=== PATIENT | female | born 1935 | race Caucasian/White ===

== ENCOUNTER 2016-08-04 16:53 | Emergency (ER) | payer MEDICARE ==
[2016-08-04 17:49] LABS: Hematocrit 38 % (35-47); Hemoglobin 12.7 g/dl (12.0-16.0); Mean Corpuscular HGB Conc 33 g/dl (31-36); Mean Corpuscular Hemoglobin 30 pg (27-31); Mean Corpuscular Volume 91 fL (80-97); Mean Platelet Volume 10 um3 (7.4-10.4); Red Blood Count 4.21 10^6/ul (4.0-5.4); Red Cell Distribution Width 13 % (10.5-15); White Blood Count 8.9 10^3/ul (3.5-10.8)
[2016-08-04 18:04] LABS: Albumin 4.1 g/dL (3.2-5.2); BUN/Creatinine Ratio 31.8 (8-20); Calcium 9.8 mg/dL (8.6-10.3); EGFR African American 79.1 (>60); EGFR Non-African American 61.5 (>60); Globulin 3.3 g/dL (2-4); Potassium 3.7 mmol/L (3.5-5.0); Total Protein 7.4 g/dL (6.4-8.9)
--- NOTE | 2016-08-04 18:18 | RAD ---
Indication: Fall, head injury. Patient on anticoagulants. CT of the brain was performed without IV contrast. Ventricular structures are midline. No midline shift is noted. The extra-axial spaces are unremarkable. There is central and cortical atrophy noted. There is no evidence of intracranial mass or hemorrhage. No other high or low density lesions are identified. Periventricular lucency consistent with chronic ischemic White matter change is noted. When compared to previous exam of October 23, 2012 there is no significant change is noted. IMPRESSION: Atrophy. Chronic ischemic White matter change is noted. No intracranial mass or hemorrhage is noted.
[2016-08-04 18:27] LABS: Total Bilirubin 0.3 mg/dL (0.2-1.0)
--- NOTE | 2016-08-04 19:06 | ED ---
Adult Trauma - HPI Summary HPI Summary: The patient is a 80 female presenting to ED with reported mechanical fall with head injury today. Reports bending forward to place boots on, loosing balance, and falling forward onto bilateral knees and left side of head. Denies LOC, headache, neck or back pain, chest pain, palpitations, lightheadedness, syncope , shortness of breath, hemoptysis, abdominal pain, nausea, vomiting, diarrhea, dysuria, change in voiding, hematuria, paresthesias. 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 PCP Dr. Finney. SH: Denies smoking or alcohol. Lives independently with . - History of Current Complaint Chief Complaint: EDHeadInjury Stated Complaint: FALL / HIT HEAD Time Seen by Provider: 08/04/16 18:03 Pain Intensity: 0 - Allergy/Home Medications Allergies/Adverse Reactions: Allergies Allergy/AdvReac Type Severity Reaction Status Date / Time No Known Allergies Allergy Verified 08/04/16 17:42 Home Medications: Home Medications Aspirin EC Low Dose* [Ecotrin EC Low Dose 81 MG*] 81 mg PO DAILY 08/04/16 [ History Confirmed 08/04/16] Bisoprolol & Hydrochlorothiazi [Ziac 10-6.25 mg-] 1 tab PO DAILY 08/04/16 [ History Confirmed 08/04/16] Hidrmoslomt-Nmzyiihhaii-Kyh C- [Glucosamine Chondroitin] 1 cap PO DAILY [History Confirmed 08/04/16] Hydrochlorothiazide TAB* [Hydrodiuril TAB*] 12.5 mg PO DAILY 08/04/16 [History Confirmed 08/04/16] Levothyroxine TAB* [Synthroid TAB*] 125 mcg PO DAILY 08/04/16 [History Confirmed 08/04/16] Misc Natural Products [Fiber Felt] 1 teasp PO DAILY 08/04/16 [History Confirmed 08/04/16] Multiple Vitamins W/ Minerals [Eye Vitamins & Minerals] 1 tab PO DAILY 08/04/16 [History Confirmed 08/04/16] Multiple Vitamins W/ Minerals [Multivitamin Adults 50+] 1 tab PO DAILY 08/04/16 [History Confirmed 08/04/16] Oxybutynin TAB* [Ditropan TAB*] 10 mg PO DAILY 08/04/16 [History Confirmed 08/04] Rivaroxaban TAB(*) [Xarelto 20 mg] 20 mg PO DAILY 08/04/16 [History Confirmed ] metFORMIN* [Glucophage 500 MG TAB *] 500 mg PO BID 08/04/16 [History Confirmed 08/04/16] PMH/Surg Hx/FS Hx/Imm Hx Endocrine/Hematology History: Reports: Hx Anticoagulant Therapy - coumadin, Hx Thyroid Disease Cardiovascular History: Reports: Hx Hypertension - W/MEDS Denies: Hx Pacemaker/ICD Sensory History: Reports: Hx Cataracts - bilateral eye surgery, Hx Contacts or Glasses, Hx Vision Problem - loss of left eye vision this admission, Hx Hearing Aid - REMOVED, Hx Hearing Problem Opthamlomology History: Reports: Hx Cataracts - bilateral eye surgery, Hx Contacts or Glasses, Hx Vision Problem - loss of left eye vision this admission Psychiatric History: Reports: Other Psychiatric Issues/Disorders - claustrophobia Denies: Hx Panic Disorder - Surgical History Surgery Procedure, Year, and Place: HYSTERECTOMY Hx Anesthesia Reactions: No Infectious Disease History: No Infectious Disease History: Denies: Traveled Outside the [place] in Last 30 Days - Social History Alcohol Use: Rare Substance Use Type: Reports: None Smoking Status (MU): Never Smoked Tobacco Review of Systems Constitutional: Negative Negative: Fever, Chills, Fatigue Eyes: Negative Negative: Photophobia, Blurred Vision ENT: Negative Negative: Epistaxis Cardiovascular: Negative Negative: Palpitations, Chest Pain Respiratory: Negative Negative: Shortness Of Breath Gastrointestinal: Negative Negative: Abdominal Pain, Vomiting, Diarrhea, Nausea Genitourinary: Negative Positive: no symptoms reported. Negative: burning, dysuria, frequency, hematuria, pain, urgency Positive: Arthralgia. Negative: Myalgia, Decreased ROM, Edema Skin: Negative Positive: Weakness. Negative: Headache, Paresthesia, Numbness, Syncope, Slurred Speech Psychological: Normal All Other Systems Reviewed And Are Negative: Yes Physical Exam Triage Information Reviewed: Yes Vital Signs On Initial Exam: Initial Vitals Temp Pulse Resp BP Pulse Ox 98.4 F 78 20 159/84 98 08/04/16 16:55 08/04/16 16:55 08/04/16 16:55 08/04/16 16:55 08/04/16 16:55 Vital Signs Reviewed: Yes Appearance: Positive: Well-Appearing, No Pain Distress, Well-Nourished Skin: Positive: Warm, Skin Color Reflects Adequate Perfusion, Dry, Other - minor abrasion left knee Head/Face: Positive: Normal Head/Face Inspection. Negative: Cephalohematoma Eyes: Positive: Normal, EOMI, RAMON, Conjunctiva Clear ENT: Positive: Normal ENT inspection, Hearing grossly normal, Pharynx normal, TMs normal Neck: Positive: Supple, Nontender Respiratory/Lung Sounds: Positive: Clear to Auscultation, Breath Sounds Present. Negative: Decreased Breath Sounds, Rales, Rhonchi, Wheezes, Unable to speak in full sentences Cardiovascular: Positive: Normal - radial pulse 2+, RRR, S1, S2. Negative: Murmur, Rub, Tachycardia, Leg Edema Left, Leg Edema Right Abdomen Description: Positive: Nontender, No Organomegaly, Soft. Negative: CVA Tenderness (R), CVA Tenderness (L), Distended, Guarding, Hepatomegaly, Peritoneal Signs, Splenomegaly Bowel Sounds: Positive: Present Musculoskeletal: Positive: Strength/ROM Intact, Pain @ - mild tenderness right bilateral mallelous without deformity; mild tenderness left anterior knee without deformity; mild tenderness left mid-distal tibia with faint ecchymosis and trace edema. Negative: Edema Left, Edema Right Neurological: Positive: Normal, Sensory/Motor Intact, Alert, Oriented to Person Place, Time, CN Intact II-III, Reflexes Intact, NV Bundle Intact Distally, Facial Symmetry, Speech Normal Psychiatric: Positive: Normal AVPU Assessment: Alert - [place] Coma Scale Coma Scale Total: 15 Diagnostics - Vital Signs Vital Signs Temp Pulse Resp BP Pulse Ox 08/04/16 16:55 98.4 F 78 20 159/84 98 - Laboratory Lab Results: Lab Results 08/04/16 08/04/16 08/04/16 Range/Units 17:40 17:40 17:40 WBC 8.9 (3.5-10.8) 10^3/ul RBC 4.21 (4.0-5.4) 10^6/ul Hgb 12.7 (12.0-16.0) g/dl Hct 38 (35-47) % MCV 91 (80-97) fL MCH 30 (27-31) pg MCHC 33 (31-36) g/dl RDW 13 (10.5-15) % Plt Count 195 (150-450) 10^3/ul MPV 10 (7.4-10.4) um3 Neut % (Auto) 67.4 (38-83) % Lymph % (Auto) 22.4 L (25-47) % [place] % (Auto) 7.3 (1-9) % Eos % (Auto) 2.3 (0-6) % Baso % (Auto) 0.6 (0-2) % Absolute Neuts (auto) 6.0 (1.5-7.7) 10^3/ul Absolute Lymphs (auto) 2.0 (1.0-4.8) 10^3/ul Absolute Monos (auto) 0.6 (0-0.8) 10^3/ul Absolute Eos (auto) 0.2 (0-0.6) 10^3/ul Absolute Basos (auto) 0.1 (0-0.2) 10^3/ul Absolute Nucleated RBC 0 10^3/ul Nucleated RBC % 0 INR (Anticoag Therapy) 1.61 H (0.89-1.11) APTT 35.4 (26.0-36.3) seconds Sodium 134 (133-145) mmol/L Potassium 3.7 (3.5-5.0) mmol/L Chloride 99 L (101-111) mmol/L Carbon Dioxide 25 (22-32) mmol/L Anion Gap 10 (2-11) mmol/L BUN 28 H (6-24) mg/dL Creatinine 0.88 (0.51-0.95) mg/dL Est GFR ( Amer) 79.1 (>60) Est GFR (Non-Af Amer) 61.5 (>60) BUN/Creatinine Ratio 31.8 H (8-20) Glucose 104 H (70-100) mg/dL Calcium 9.8 (8.6-10.3) mg/dL Total Bilirubin 0.30 (0.2-1.0) mg/dL AST 18 (13-39) U/L ALT 15 (7-52) U/L Alkaline Phosphatase 38 (34-104) U/L Total Protein 7.4 (6.4-8.9) g/dL Albumin 4.1 (3.2-5.2) g/dL Globulin 3.3 (2-4) g/dL Albumin/Globulin Ratio 1.2 (1-3) Result Diagrams: 08/04/16 17:40 08/04/16 17:40 Lab Statement: Any lab studies that have been ordered have been reviewed, and results considered in the medical decision making process. Adult Trauma Course/Dx - Course Assessment/Plan: Patient presented for head injury from mechanical fall. Labs reviewed and grossly unremarkable. BT brain without acute process but demonstrates atrophy and ischemic white matter changes. Xrays of left leg, left knee, and right ankle without acute fracture. Patient educated on concerning head injury symptoms to seek immediately medical attention. Advised to follow- up with Dr. Finney in 3 days. - Diagnoses Provider Diagnoses: Fall, Head injury, Contusion of left leg, Right ankle sprain Discharge - Discharge Plan Condition: Stable Disposition: HOME Patient Education Materials: Head Injury (ED), Contusion in Adults (ED), Ankle Sprain (ED) Referrals: Carole Finney MD [Primary Care Provider] - 3 Days
--- NOTE | 2016-08-04 19:46 | RAD ---
Indication: Left knee tenderness. 4 views of the left knee demonstrates no joint effusion. Calcifications are present along the quadriceps tendon. No fracture or joint effusion is noted. Soft tissue swelling is noted anterior medial. IMPRESSION: NO FRACTURE OR JOINT EFFUSION. SOFT TISSUE SWELLING ANTEROMEDIALLY IS NOTED.
--- NOTE | 2016-08-04 19:47 | RAD ---
Indication: Right ankle pain and swelling. 3 views of the right ankle demonstrates no fracture. No other bone or joint abnormality is identified. IMPRESSION: No fracture of the right ankle is noted.
--- NOTE | 2016-08-04 19:47 | RAD ---
Indication: Tenderness of the left lower leg 2 views of the left lower leg demonstrates no fracture. No other bone or joint disease noted. IMPRESSION: No fracture of the left tibia or fibula.
[2016-08-04 20:21] VITALS: BP 148/75
== END 2016-08-04 20:18 | disposition home or self-care (01) ==
LOC: ED 16:53
DX: S09.90XA Unspecified injury of head, initial encounter (principal); S80.12XA Contusion of left lower leg, initial encounter; S93.401A Sprain of unspecified ligament of right ankle, initial encounter; R53.1 Weakness; W19.XXXA Unspecified fall, initial encounter; Y93.9 Activity, unspecified; Y92.9 Unspecified place or not applicable
CPT/HCPCS: 36415; 70450; 80053; 85025; 85610; 85730; 93005; 99282

== ENCOUNTER 2017-05-20 17:42 | Observation (INO) | payer MEDICARE, BC ==
[2017-05-20] MEDS ORDERED: NS 0.9% 1000 ML* 1,000 ML IV ONE (17:52)
[2017-05-20] MEDS ORDERED: Labetalol IV* 5 MG/ML 20 ML VIAL IV PUSH ONE (17:54)
[2017-05-20 18:10] LABS: ABS Basophils 0 10^3/ul (0-0.2); ABS Eosinophils 0 10^3/ul (0-0.6); ABS Lymphocytes 0.4 10^3/ul (1.0-4.8); ABS Monocytes 0.4 10^3/ul (0-0.8); ABS Neutrophils 4.2 10^3/ul (1.5-7.7); ABS Nucleated RBC 0 10^3/ul; Eosinophil % 0.1 % (0-6); Hematocrit 37 % (35-47); Hemoglobin 12.5 g/dl (12.0-16.0); Lymphocyte % 7.1 % (25-47); Mean Corpuscular HGB Conc 34 g/dl (31-36); Mean Corpuscular Hemoglobin 31 pg (27-31); Mean Corpuscular Volume 90 fL (80-97); Mean Platelet Volume 9 um3 (7.4-10.4); Nucleated Red Blood Cells % 0.1; Platelet Count 161 10^3/ul (150-450); Red Blood Count 4.09 10^6/ul (4.0-5.4); Red Cell Distribution Width 13 % (10.5-15)
--- NOTE | 2017-05-20 18:22 | RAD ---
INDICATION: Fall, weakness. COMPARISON: Comparison is made with a prior CT of the brain from August 04, 2016. TECHNIQUE: Contiguous axial sections of the brain were obtained from the skull base to the vertex without contrast. FINDINGS: The ventricles, cisterns and sulci are enlarged consistent with diffuse atrophy. There are small areas of decreased density in the subcortical and periventricular white matter suggestive of mild chronic small vessel ischemic changes. No other focal abnormality or mass effect is seen. There is no evidence for hemorrhage. No significant focal osseous abnormality is seen. The visualized portion of the paranasal sinuses and mastoid air cells appear clear. IMPRESSION: NO EVIDENCE FOR ACUTE INTRACRANIAL ABNORMALITY.
[2017-05-20 18:23] LABS: EGFR Non-African American 81.3 (>60)
[2017-05-20 18:28] LABS: INR 1.45 (0.77-1.02)
--- NOTE | 2017-05-20 18:56 | RAD ---
INDICATION: Neurologic changes, code car. COMPARISON: Comparison is made with a prior chest x-ray study from October 23, 2012. TECHNIQUE: A portable view of the chest was obtained. FINDINGS: Cardiac and mediastinal contours appear to be within normal limits. The lungs are clear. No pleural effusion is seen. IMPRESSION: NO EVIDENCE FOR ACUTE DISEASE.
[2017-05-20] MEDS ORDERED: Iodixanol* (CONTRAST) 320 MG/ML 100 ML SDV IV ONE (19:56)
[2017-05-20 20:02] LABS: Urine Appearance Clear; Urine Blood Negative (Negative); Urine Color Yellow; Urine Ketones 1+ (Negative); Urine Protein Negative (Negative); Urine Specific Gravity 1.014 (1.010-1.030); Urine Urobilinogen Negative (Negative)
--- NOTE | 2017-05-20 20:09 | ED ---
Phillip Laureano Natalie, scribed for Carlos Wellington MD on 05/20/17 at 1803 . Altered Mental Status - HPI Summary HPI Summary: The pt is an 81 y/o F BIBA to the ED per EMS c/o AMS s/p falling twice today. Per EMS, the pt was lying supine on the ground when found. A neck and back check was done, and the pt said she was not in pain. The pt was A&Ox3, but did have slight confusion, nausea, and a headache. The [place] strip scale was negative. Per pt, she is not currently in pain, but states she isnt sure why she is here, but she is thirsty. Per , the pt looks tired and is less aware than usual. 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 She took all of her usual medications this morning. - History Of Current Complaint Chief Complaint: EDAltMentalStatus Stated Complaint: WEAKNESS/FALLS Hx Obtained From: Patient, Family/Java Lead Engineer - , EMS Onset/Duration: Still Present - still slightly confused, Suddenly Timing: Lasting Hours - fell twice today Severity Initially: Moderate Severity Currently: Moderate Character: Confusion Aggravating Factor(s): Nothing Alleviating Factor(s): Nothing Associated Signs And Symptoms: Positive: Nausea, Weakness - Allergies/Home Medications Allergies/Adverse Reactions: Allergies Allergy/AdvReac Type Severity Reaction Status Date / Time No Known Allergies Allergy Verified 08/04/16 17:42 PMH/Surg Hx/FS Hx/Imm Hx Previously Healthy: No Endocrine/Hematology History: Reports: Hx Anticoagulant Therapy - coumadin, Hx Thyroid Disease Cardiovascular History: Reports: Hx Hypertension - W/MEDS Denies: Hx Pacemaker/ICD Sensory History: Reports: Hx Cataracts - bilateral eye surgery, Hx Contacts or Glasses, Hx Vision Problem - loss of left eye vision this admission, Hx Hearing Aid - REMOVED, Hx Hearing Problem Opthamlomology History: Reports: Hx Cataracts - bilateral eye surgery, Hx Contacts or Glasses, Hx Vision Problem - loss of left eye vision this admission Psychiatric History: Reports: Other Psychiatric Issues/Disorders - claustrophobia Denies: Hx Panic Disorder - Surgical History Surgery Procedure, Year, and Place: HYSTERECTOMY Hx Anesthesia Reactions: No Infectious Disease History: No Infectious Disease History: Denies: Traveled Outside the [place] in Last 30 Days - Family History Known Family History: Positive: Hypertension Negative: Diabetes - Social History Alcohol Use: Rare Substance Use Type: Reports: None Smoking Status (MU): Never Smoked Tobacco Review of Systems Positive: Nausea Neurological: Other - confusion Positive: Headache, Weakness All Other Systems Reviewed And Are Negative: Yes Physical Exam Vital Signs On Initial Exam: Initial Vitals Temp Pulse Resp BP Pulse Ox 98.4 F 86 21 156/133 92 05/20/17 17:46 05/20/17 17:46 05/20/17 17:46 05/20/17 17:46 05/20/17 17:46 Diagnostics - Vital Signs Vital Signs Temp Pulse Resp BP Pulse Ox 05/20/17 17:46 98.4 F 86 21 156/133 92 - Laboratory Lab Results: Lab Results 05/20/17 05/20/17 05/20/17 Range/Units 17:55 17:55 17:55 WBC 5.0 (3.5-10.8) 10^3/ul RBC 4.09 (4.0-5.4) 10^6/ul Hgb 12.5 (12.0-16.0) g/dl Hct 37 (35-47) % MCV 90 (80-97) fL MCH 31 (27-31) pg MCHC 34 (31-36) g/dl RDW 13 (10.5-15) % Plt Count 161 (150-450) 10^3/ul MPV 9 (7.4-10.4) um3 Neut % (Auto) 84.2 H (38-83) % Lymph % (Auto) 7.1 L (25-47) % [place] % (Auto) 8.3 (1-9) % Eos % (Auto) 0.1 (0-6) % Baso % (Auto) 0.3 (0-2) % Absolute Neuts (auto) 4.2 (1.5-7.7) 10^3/ul Absolute Lymphs (auto) 0.4 L (1.0-4.8) 10^3/ul Absolute Monos (auto) 0.4 (0-0.8) 10^3/ul Absolute Eos (auto) 0 (0-0.6) 10^3/ul Absolute Basos (auto) 0 (0-0.2) 10^3/ul Absolute Nucleated RBC 0 10^3/ul Nucleated RBC % 0.1 INR (Anticoag Therapy) 1.45 H (0.77-1.02) APTT 33.2 (26.0-36.3) seconds Sodium 128 L (133-145) mmol/L Potassium 3.7 (3.5-5.0) mmol/L Chloride 95 L (101-111) mmol/L Carbon Dioxide 24 (22-32) mmol/L Anion Gap 9 (2-11) mmol/L BUN 13 (6-24) mg/dL Creatinine 0.69 (0.51-0.95) mg/dL Est GFR ( Amer) 104.5 (>60) Est GFR (Non-Af Amer) 81.3 (>60) BUN/Creatinine Ratio 18.8 (8-20) Glucose 144 H (70-100) mg/dL Lactic Acid (0.5-2.0) mmol/L Calcium 9.0 (8.6-10.3) mg/dL Total Bilirubin 0.30 (0.2-1.0) mg/dL AST 20 (13-39) U/L ALT 14 (7-52) U/L Alkaline Phosphatase 35 (34-104) U/L Troponin I 0.01 (<0.04) ng/mL Total Protein 7.0 (6.4-8.9) g/dL Albumin 4.0 (3.2-5.2) g/dL Globulin 3.0 (2-4) g/dL Albumin/Globulin Ratio 1.3 (1-3) Triglycerides 102 mg/dL Cholesterol 144 mg/dL LDL Cholesterol 86 mg/dL HDL Cholesterol 37.3 mg/dL Urine Color Urine Appearance Urine pH (5-9) Ur Specific [place] (1.010-1.030) Urine Protein (Negative) Urine Ketones (Negative) Urine Blood (Negative) Urine Nitrate (Negative) Urine Bilirubin (Negative) Urine Urobilinogen (Negative) Ur Leukocyte Esterase (Negative) Urine WBC (Auto) (Absent) Urine RBC (Auto) (Absent) Ur Squamous Epith Cells (Absent) Urine Bacteria (Absent) Urine Glucose (Negative) Urine Ascorbic Acid (Negative) Blood Type Antibody Screen 05/20/17 05/20/17 05/20/17 Range/Units 17:55 17:55 19:37 WBC (3.5-10.8) 10^3/ul RBC (4.0-5.4) 10^6/ul Hgb (12.0-16.0) g/dl Hct (35-47) % MCV (80-97) fL MCH (27-31) pg MCHC (31-36) g/dl RDW (10.5-15) % Plt Count (150-450) 10^3/ul MPV (7.4-10.4) um3 Neut % (Auto) (38-83) % Lymph % (Auto) (25-47) % [place] % (Auto) (1-9) % Eos % (Auto) (0-6) % Baso % (Auto) (0-2) % Absolute Neuts (auto) (1.5-7.7) 10^3/ul Absolute Lymphs (auto) (1.0-4.8) 10^3/ul Absolute Monos (auto) (0-0.8) 10^3/ul Absolute Eos (auto) (0-0.6) 10^3/ul Absolute Basos (auto) (0-0.2) 10^3/ul Absolute Nucleated RBC 10^3/ul Nucleated RBC % INR (Anticoag Therapy) (0.77-1.02) APTT (26.0-36.3) seconds Sodium (133-145) mmol/L Potassium (3.5-5.0) mmol/L Chloride (101-111) mmol/L Carbon Dioxide (22-32) mmol/L Anion Gap (2-11) mmol/L BUN (6-24) mg/dL Creatinine (0.51-0.95) mg/dL Est GFR ( Amer) (>60) Est GFR (Non-Af Amer) (>60) BUN/Creatinine Ratio (8-20) Glucose (70-100) mg/dL Lactic Acid 1.2 (0.5-2.0) mmol/L Calcium (8.6-10.3) mg/dL Total Bilirubin (0.2-1.0) mg/dL AST (13-39) U/L ALT (7-52) U/L Alkaline Phosphatase (34-104) U/L Troponin I (<0.04) ng/mL Total Protein (6.4-8.9) g/dL Albumin (3.2-5.2) g/dL Globulin (2-4) g/dL Albumin/Globulin Ratio (1-3) Triglycerides mg/dL Cholesterol mg/dL LDL Cholesterol mg/dL HDL Cholesterol mg/dL Urine Color Yellow Urine Appearance Clear Urine pH 6.0 (5-9) Ur Specific [place] 1.014 (1.010-1.030) Urine Protein Negative (Negative) Urine Ketones 1+ H (Negative) Urine Blood Negative (Negative) Urine Nitrate Negative (Negative) Urine Bilirubin Negative (Negative) Urine Urobilinogen Negative (Negative) Ur Leukocyte Esterase 1+ H (Negative) Urine WBC (Auto) Trace(0-5/hpf) (Absent) Urine RBC (Auto) 1+(3-5/hpf) H (Absent) Ur Squamous Epith Cells Present H (Absent) Urine Bacteria Absent (Absent) Urine Glucose Negative (Negative) Urine Ascorbic Acid * H (Negative) Blood Type A Positive Antibody Screen Negative Result Diagrams: 05/20/17 17:55 05/20/17 17:55 Lab Statement: Any lab studies that have been ordered have been reviewed, and results considered in the medical decision making process. - CT CT Brain CT Interpretation: No Acute Changes - No evidence for acute intracranial findings. ED physician has reviewed this report. CT Interpretation Completed By: Radiologist - EKG 18:22 Cardiac Rate: NL EKG Rhythm: Sinus Rhythm - 84 BPM Altered Mental Statu Course/Dx - Course Assessment/Plan: appears moderately improved per , UA negative, pending CTA, pt care signed out to PMD attending Dr. Mena - Diagnoses Discharge Diagnoses: TIA (transient ischemic attack) Discharge - Discharge Plan Condition: Stable Disposition: OTHER Discharge Disposition Comment: pending CTA head/neck Referrals: Carole Finney MD [Primary Care Provider] - The documentation as recorded by the Phillip dawkins Natalie accurately reflects the service I personally performed and the decisions made by me, Carlos Wellington MD.
--- NOTE | 2017-05-20 20:39 | RAD ---
INDICATION: Altered mental status, history of stroke. COMPARISON: Comparison is made with a prior CT angiogram of the head and neck from October 23, [address] of the brain from May 20, 2017. TECHNIQUE: A CT angiogram of the head and neck was performed following intravenous injection of 80 ml of Omnipaque 350 nonionic contrast. Contiguous axial sections were obtained from the thoracic inlet through the skull vertex. Images were reconstructed in the coronal and sagittal planes and in a 3-D volume rendered format. The distal cervical internal carotid artery diameter is used as the denominator for stenosis measurement. FINDINGS: RIGHT CAROTID: The common carotid artery appears widely patent. There is mild to moderate calcific plaque present within the carotid bulb and proximal internal carotid artery. No hemodynamically significant stenosis is present. The remaining internal carotid artery appears widely patent. LEFT CAROTID: The left common carotid artery appears widely patent. There is mild calcific plaque within the carotid bulb and proximal internal carotid artery. No hemodynamically significant stenosis is present. The remaining internal carotid artery appears widely patent. VERTEBRALS: The vertebral arteries appear patent without evidence for high-grade stenosis. The right vertebral artery appears dominant. CTA BRAIN: The internal carotid, anterior and middle cerebral arteries appear patent without evidence for high-grade stenosis or occlusion. The vertebral, basilar and posterior cerebral arteries appear patent without evidence for high-grade stenosis or occlusion. No gross focal perfusion abnormalities are seen. No aneurysm or vascular malformation is seen. NECK: No significant enlarged lymph nodes are seen within the neck. The thyroid, parotid and submandibular glands appear to be within normal limits. The lung apices appear clear. The paranasal sinuses and mastoid air cells appear clear IMPRESSION: 1. NO EVIDENCE FOR HEMODYNAMICALLY SIGNIFICANT CAROTID STENOSIS. 2. NO EVIDENCE FOR LARGE VESSEL INTRACRANIAL THROMBUS. CPT II Codes: 3100F
--- NOTE | 2017-05-20 23:42 | HP ---
H&P (Free Text) History and Physical: PCP: Silvia Finney MD Date/Time: 05/20/2017 CC: fall x2 HPI: Mrs Willett is an 81YO female HX CVA, HTN, pre-DM, & hypothyriodism who reports 2 falls today. She is a poor historian and unable to tell much of her history frequently stating "I don't know" and at one point pausing the history to complain of the number of questions I ask. Her is present and gives this information. She was walking to the dining table around noon when she became tremulous and he assisted her to the ground. There was no head impact or loss of consciousness. She had no specific complaints and was able to be assisted back up after a short period and continue with her day. Again around 1600 she was leaving the bathroom when her legs buckled and he again assisted her to the ground, no head impact or LOC. This time he could not get her back to her feet and so EMS was called. There was no complaint of chest pain, SOB, palpitations, light-headedness, sweats, F/C, N/V, loss of bowel/bladder, focal W /N/T, change in speech/swallow, or other issues. She denies B/U/F of urine, abdominal pain, or complaint at this time. states she was originally mildly confused, but is nearly back to baseline. As she has had CVAs in the past resulting in gait abnormality and loss of vision on the right ED was concerned for possible TIA prompting request for observation. PMedHx CVA pre-DM HTN hypothyroidism [facility] Ambulatory Orders Nursing to reconcile. Aspirin EC Low Dose* [Ecotrin EC Low Dose 81 MG*] 81 mg PO DAILY 08/04/16 Bisoprolol & Hydrochlorothiazi [Ziac 10-6.25 mg-] 1 tab PO DAILY 08/04/16 Glbowrmlrrw-Wfofsnbcfij-Dya C- [Glucosamine Chondroitin] 1 cap PO DAILY Hydrochlorothiazide TAB* [Hydrodiuril TAB*] 12.5 mg PO DAILY 08/04/16 Levothyroxine TAB* [Synthroid TAB*] 125 mcg PO DAILY 08/04/16 Misc Natural Products [Fiber [employer]] 1 teasp PO DAILY 08/04/16 Multiple Vitamins W/ Minerals [Eye Vitamins & Minerals] 1 tab PO DAILY 08/04/16 Multiple Vitamins W/ Minerals [Multivitamin Adults 50+] 1 tab PO DAILY 08/04/16 Oxybutynin TAB* [Ditropan TAB*] 10 mg PO DAILY 08/04/16 Rivaroxaban TAB(*) [Xarelto 20 mg] 20 mg PO DAILY 08/04/16 metFORMIN* [Glucophage 500 MG TAB *] 500 mg PO BID 08/04/16 Allergies No Known Allergies Allergy (Verified 05/20/17 20:20) PSurgHx OU cataract extractions appendectomy hysterectomy SocHx: no tobacco, minimal alcohol, no recreational drugs; lives with her ; retired taxicab dispatcher; DNR code status FamHx: positive for CAD & lung CA ROS: as above, otherwise reviewed and all were negative vitals: Vital Signs Temp 36.9 C 05/20/17 17:46 Pulse 81 05/20/17 22:00 Resp 14 05/20/17 22:00 BP 145/56 05/20/17 22:00 Pulse Ox 95 05/20/17 22:00 Intake & Output 05/19/17 05/20/17 05/20/17 23:59 11:59 23:59 Intake Total 1000 Balance 1000 Weight 90.718 kg Intake: IV Fluids 1000 Constitutional: NAD, normally developed, overweight elderly white female HEENM: atraumatic; sclera/conjunctiva: anicteric/clear; hearing: mild/mod hard- of-hearing; oropharynx: clear, mucosa tacky Neck: soft tissue: non-tender, no nuchal rigidity; thyroid: normal Pulmonary: clear to auscultation bilaterally, good aeration, no accessory muscle use CV: RR/RR, normal S1S2, no carotid bruit, no jugular venous distention, 2+ B DP/ PT, no edema Abdominal: soft, non-distended, non-tender, no rebound/guarding/rigidity, normoactive bowel sounds, no hepatosplenomegaly or masses, no costovertebral angle tenderness Musculoskeletal: general: grossly intact, mild superficial tenderness B shins, negative Lucius's B Integumental: normal appearance and texture of exposed skin Psychiatric orientation: AA&O to PP, not TS affect: calm mood: cooperative eye contact: fair content: unreliable responses: timely insight: poor Testing: Lab Results 05/20/17 05/20/17 05/20/17 Range/Units 17:55 17:55 17:55 WBC 5.0 (3.5-10.8) 10^3/ul RBC 4.09 (4.0-5.4) 10^6/ul Hgb 12.5 (12.0-16.0) g/dl Hct 37 (35-47) % MCV 90 (80-97) fL MCH 31 (27-31) pg MCHC 34 (31-36) g/dl RDW 13 (10.5-15) % Plt Count 161 (150-450) 10^3/ul MPV 9 (7.4-10.4) um3 Neut % (Auto) 84.2 H (38-83) % Lymph % (Auto) 7.1 L (25-47) % [place] % (Auto) 8.3 (1-9) % Eos % (Auto) 0.1 (0-6) % Baso % (Auto) 0.3 (0-2) % Absolute Neuts (auto) 4.2 (1.5-7.7) 10^3/ul Absolute Lymphs (auto) 0.4 L (1.0-4.8) 10^3/ul Absolute Monos (auto) 0.4 (0-0.8) 10^3/ul Absolute Eos (auto) 0 (0-0.6) 10^3/ul Absolute Basos (auto) 0 (0-0.2) 10^3/ul Absolute Nucleated RBC 0 10^3/ul Nucleated RBC % 0.1 INR (Anticoag Therapy) 1.45 H (0.77-1.02) APTT 33.2 (26.0-36.3) seconds Sodium 128 L (133-145) mmol/L Potassium 3.7 (3.5-5.0) mmol/L Chloride 95 L (101-111) mmol/L Carbon Dioxide 24 (22-32) mmol/L Anion Gap 9 (2-11) mmol/L BUN 13 (6-24) mg/dL Creatinine 0.69 (0.51-0.95) mg/dL Est GFR ( Amer) 104.5 (>60) Est GFR (Non-Af Amer) 81.3 (>60) BUN/Creatinine Ratio 18.8 (8-20) Glucose 144 H (70-100) mg/dL Lactic Acid (0.5-2.0) mmol/L Calcium 9.0 (8.6-10.3) mg/dL Total Bilirubin 0.30 (0.2-1.0) mg/dL AST 20 (13-39) U/L ALT 14 (7-52) U/L Alkaline Phosphatase 35 (34-104) U/L Troponin I 0.01 (<0.04) ng/mL Total Protein 7.0 (6.4-8.9) g/dL Albumin 4.0 (3.2-5.2) g/dL Globulin 3.0 (2-4) g/dL Albumin/Globulin Ratio 1.3 (1-3) Triglycerides 102 mg/dL Cholesterol 144 mg/dL LDL Cholesterol 86 mg/dL HDL Cholesterol 37.3 mg/dL Urine Color Urine Appearance Urine pH (5-9) Ur Specific [place] (1.010-1.030) Urine Protein (Negative) Urine Ketones (Negative) Urine Blood (Negative) Urine Nitrate (Negative) Urine Bilirubin (Negative) Urine Urobilinogen (Negative) Ur Leukocyte Esterase (Negative) Urine WBC (Auto) (Absent) Urine RBC (Auto) (Absent) Ur Squamous Epith Cells (Absent) Urine Bacteria (Absent) Urine Glucose (Negative) Urine Ascorbic Acid (Negative) Blood Type Antibody Screen 05/20/17 05/20/17 05/20/17 Range/Units 17:55 17:55 19:37 WBC (3.5-10.8) 10^3/ul RBC (4.0-5.4) 10^6/ul Hgb (12.0-16.0) g/dl Hct (35-47) % MCV (80-97) fL MCH (27-31) pg MCHC (31-36) g/dl RDW (10.5-15) % Plt Count (150-450) 10^3/ul MPV (7.4-10.4) um3 Neut % (Auto) (38-83) % Lymph % (Auto) (25-47) % [place] % (Auto) (1-9) % Eos % (Auto) (0-6) % Baso % (Auto) (0-2) % Absolute Neuts (auto) (1.5-7.7) 10^3/ul Absolute Lymphs (auto) (1.0-4.8) 10^3/ul Absolute Monos (auto) (0-0.8) 10^3/ul Absolute Eos (auto) (0-0.6) 10^3/ul Absolute Basos (auto) (0-0.2) 10^3/ul Absolute Nucleated RBC 10^3/ul Nucleated RBC % INR (Anticoag Therapy) (0.77-1.02) APTT (26.0-36.3) seconds Sodium (133-145) mmol/L Potassium (3.5-5.0) mmol/L Chloride (101-111) mmol/L Carbon Dioxide (22-32) mmol/L Anion Gap (2-11) mmol/L BUN (6-24) mg/dL Creatinine (0.51-0.95) mg/dL Est GFR ( Amer) (>60) Est GFR (Non-Af Amer) (>60) BUN/Creatinine Ratio (8-20) Glucose (70-100) mg/dL Lactic Acid 1.2 (0.5-2.0) mmol/L Calcium (8.6-10.3) mg/dL Total Bilirubin (0.2-1.0) mg/dL AST (13-39) U/L ALT (7-52) U/L Alkaline Phosphatase (34-104) U/L Troponin I (<0.04) ng/mL Total Protein (6.4-8.9) g/dL Albumin (3.2-5.2) g/dL Globulin (2-4) g/dL Albumin/Globulin Ratio (1-3) Triglycerides mg/dL Cholesterol mg/dL LDL Cholesterol mg/dL HDL Cholesterol mg/dL Urine Color Yellow Urine Appearance Clear Urine pH 6.0 (5-9) Ur Specific [place] 1.014 (1.010-1.030) Urine Protein Negative (Negative) Urine Ketones 1+ H (Negative) Urine Blood Negative (Negative) Urine Nitrate Negative (Negative) Urine Bilirubin Negative (Negative) Urine Urobilinogen Negative (Negative) Ur Leukocyte Esterase 1+ H (Negative) Urine WBC (Auto) Trace(0-5/hpf) (Absent) Urine RBC (Auto) 1+(3-5/hpf) H (Absent) Ur Squamous Epith Cells Present H (Absent) Urine Bacteria Absent (Absent) Urine Glucose Negative (Negative) Urine Ascorbic Acid * H (Negative) Blood Type A Positive Antibody Screen Negative ECG, personally reviewed: NSR rate 84, no ischemia CXR, personally reviewed: IMPRESSION: NO EVIDENCE FOR ACUTE DISEASE. CT brain WO, personally reviewed: IMPRESSION: NO EVIDENCE FOR ACUTE INTRACRANIAL ABNORMALITY. CTA head/neck, personally reviewed: IMPRESSION: 1. NO EVIDENCE FOR HEMODYNAMICALLY SIGNIFICANT CAROTID STENOSIS. 2. NO EVIDENCE FOR LARGE VESSEL INTRACRANIAL THROMBUS. Impression: 81F presenting with assisted falls x2 and concern for TIA vs CVA DIAGNOSIS & PLAN Primary possible TIA : HX CVA : continue aspirin & rivaroxaban which she states was for CVA : telemetry : recheck CT brain WO in AM : supplemental oxygen : supportive care Secondary pre-DM : review meds once reconciled : hold metformin 48h post CTA head/neck : consistent carb diet : check A1c HTN : review meds once reconciled hypothyroidism : review meds once reconciled OAB : review meds once reconciled Admission Rational: observation for TIA evaluation DVTp: rivaroxaban Code Status: DNR HCP:
[2017-05-21] MEDS ORDERED: CMCS: Melatonin (NF) 3 MG TAB PO PRN (00:07)
[2017-05-21] MEDS ORDERED: Ondansetron INJ* 2 MG/ML VIAL IV PRN (00:07)
[2017-05-21] MEDS ORDERED: Acetaminophen TAB* 325 MG PO PRN (00:07)
[2017-05-21] MEDS ORDERED: NS 0.9% 1000 ML* 1,000 ML IV SCH (00:15)
[2017-05-21] MEDS ORDERED: Levothyroxine TAB* 125 MCG TAB PO SCH (06:00)
[2017-05-21] MEDS ORDERED: Omeprazole CAP* 20 MG PO SCH (06:00)
[2017-05-21 06:48] LABS: Hematocrit 36 % (35-47); Hemoglobin 12.4 g/dl (12.0-16.0); Mean Corpuscular HGB Conc 35 g/dl (31-36); Mean Corpuscular Hemoglobin 31 pg (27-31); Mean Corpuscular Volume 89 fL (80-97); Mean Platelet Volume 9 um3 (7.4-10.4); Platelet Count 162 10^3/ul (150-450); Red Cell Distribution Width 13 % (10.5-15); White Blood Count 5.4 10^3/ul (3.5-10.8)
[2017-05-21 07:02] LABS: EGFR Non-African American 85.5 (>60)
[2017-05-21] MEDS ORDERED: BISOPROLOL PO SCH (09:00)
[2017-05-21] MEDS ORDERED: Oxybutynin XL TAB* 5 MG PO SCH (09:00)
[2017-05-21] MEDS ORDERED: Aspirin EC Low Dose* 81 MG TAB.EC PO SCH (09:00)
[2017-05-21] MEDS ORDERED: HYDROCHLOROTHIAZI PO SCH (09:00)
[2017-05-21] MEDS ORDERED: Rivaroxaban TAB(*) 20 MG TAB PO SCH (09:00)
[2017-05-21] MEDS ORDERED: Bisoprolol TAB* 5 MG PO SCH (09:00)
[2017-05-21] MEDS ORDERED: Docusate CAP* 100 MG PO SCH (09:00)
[2017-05-21] MEDS ORDERED: Hydrochlorothiazide TAB* 25 MG PO SCH (09:00)
[2017-05-21] MEDS ORDERED: Potassium Chlor TAB* 20 MEQ TAB.ER PO ONE (10:27)
[2017-05-21 12:42] VITALS: BP 142/97
--- NOTE | 2017-05-21 13:40 | RAD ---
INDICATION: Possible TIA COMPARISON: Comparison is made with prior CT of the brain from May 20, 2017. TECHNIQUE: Contiguous axial sections of the brain were obtained from the skull base to the vertex without contrast. FINDINGS: The ventricles, cisterns and sulci are enlarged consistent with diffuse atrophy. There are small areas of decreased density in the subcortical and periventricular white matter suggestive of mild chronic small vessel ischemic changes. There is no evidence for hemorrhage. No significant focal osseous abnormality is seen. The visualized portion of the paranasal sinuses and mastoid air cells appear clear. IMPRESSION: NO EVIDENCE FOR ACUTE INTRACRANIAL ABNORMALITY.
--- NOTE | 2017-05-22 10:08 | DS ---
CC: Dr. Finney * DISCHARGE SUMMARY: DATE OF ADMISSION: 05/20/17 DATE OF DISCHARGE: 05/21/17 PRIMARY CARE PROVIDER: Dr. Finney. DISCHARGE DIAGNOSES: 1. Fall x2 on 05/20/17. 2. Dehydration and hyponatremia due to that, likely related to hydrochlorothiazide use. MEDICATIONS: At discharge include: 1. Aspirin 81 mg daily. 2. Zebeta 10 mg daily. 3. Glucosamine 1 capsule daily. 4. Synthroid 125 mcg daily. 5. Metformin 500 mg b.i.d. 6. Multivitamin 1 tablet daily. 7. Oxybutynin 10 mg daily. 8. Xarelto 20 mg daily. LABORATORY DATA: Studies performed during hospital stay included: On 05/21/17 , white blood cell count 5.4, hemoglobin 12.4, hematocrit 36, and platelets 162. Sodium 128, potassium 3.4, chloride 96, carbon dioxide 25, BUN 11, creatinine 0.66. Urinalysis showed trace rbc's, trace leukocyte esterase and negative bacteria. CT angiogram of the head obtained on admission; impression: "Hemodynamically significant carotid stenosis. No evidence for large vessel intracranial thrombus". Brain CT; impression: "No evidence for acute intracranial abnormality. There was a repeat brain CT on the day of discharge. HOSPITALIZATION COURSE: Betzy Willett is an 81-year-old female with a history of CVA in the past for which she was placed on Xarelto as per the patient who presented to the hospital with 2 falls. The patient stated that she has had upper respiratory infection symptoms for a couple of weeks and subsequently became very weak. She stated that her knees "buckled underneath her" twice when she was walking with her cane on the day of admission. She came into the hospital and placed on to rule out TIA. She continued to be in sinus rhythm throughout her hospital stay. Repeat scan in the morning showed no evidence of CVA. On the day of discharge, she ambulates very well with a rolling walker. She was prescribed rolling walker and arranged for that to be delivered to the hospital before she left. She was found to be hyponatremic, mildly dehydrated, most likely due to a combination of dehydration and hydrochlorothiazide use. After initial intravenous fluids, although her sodium still continues to be 128, she felt much better. She is going to be discharged home with recommendations to follow up with Dr. Finney in approximately 4 to 7 days. The patient also has repeat blood work ordered already by Dr. Finney in approximately 1 to 2 days. PHYSICAL EXAMINATION: At the time of discharge, blood pressure 142/96, heart rate of 66 and regular, respiratory rate 16, oxygen saturation 98% on room air, temperature 98.1. General: The patient is very pleasant 81-year-old female who is in no acute distress. Alert, awake, and oriented x3. HEENT: Head atraumatic, normocephalic. Eyes: Pupils equal, reactive to light and accommodation. Oropharynx clear. Mucosa moist. Neck: Supple. No JVD. No bruits bilaterally. Cardiovascular: Regular rate and rhythm with no murmur. Respiratory: Clear to auscultation bilaterally. Abdomen: Soft, nontender. Bowel sounds present in all 4 quadrants. Extremities: +1 nonpitting pedal edema. Pulses are +2 bilaterally. No clubbing or cyanosis. On neuro evaluation , speech is clear. Cranial nerves II through XII grossly intact. Motor strength is 5/5 bilaterally. Please note that this is a short summary of the patient's hospital stay. Please refer to further medical records for details. TIME SPENT: Approximately 40 minutes were spent on the patient's discharge. [id number]/[facility] #: [id number] [facility] CENTERPriyanka
== END 2017-05-21 15:30 | disposition home or self-care (01) ==
LOC: ED 17:42 → MEDTELE 23:22
PROVIDERS: ADMIT Hospitalist; ATTEND Internal Medicine
DX: E86.0 Dehydration (principal); E87.1 Hypo-osmolality and hyponatremia; W18.39XA Other fall on same level, initial encounter; Y92.009 Unspecified place in unspecified non-institutional (private) residence as the place of occurrence of the external cause; R53.1 Weakness; Z79.899 Other long term (current) drug therapy; I10 Essential (primary) hypertension; E03.9 Hypothyroidism, unspecified; R73.03 Prediabetes; Z86.73 Personal history of transient ischemic attack (TIA), and cerebral infarction without residual deficits; Z79.01 Long term (current) use of anticoagulants; R11.0 Nausea; R51 Headache
CPT/HCPCS: 36415; 70450; 70496; 70498; 71045; 80048; 80053; 80061; 81003; 81015; 83036; 83605; 84484; 85025; 85027; 85610; 85730; 86850; 86900; 86901; 87086; 93005; 96361; 96374; 99285; A9270-GY; G0378; Q9967